=== PATIENT | female | born 1980 | race Caucasian/White ===

== ENCOUNTER 2025-02-05 10:53 | Emergency (ER) | payer BC, SELFPAY ==
[2025-02-05 11:19] VITALS: BP 126/78; PULSE 96; RESP 16; TEMP 37.4; O2SAT 99
--- NOTE | 2025-02-05 11:43 | ED.URI ---
HPI - URI/Sore Throat General Chief Complaint: Upper Respiratory Infection Stated Complaint: URI Symptoms Source: patient and RN notes reviewed Mode of arrival: ambulatory Limitations: no limitations History of Present Illness HPI Narrative: 44-year-old female presented for complaint headache, body aches, sinus pressure/congestion, cough, fever/chills. onset last night. She lost her voice this morning. Taking Sudafed and Mucinex. Denies sob, wheezing, n/v/d. MD elicited complaint: cough Review of Systems Review of Systems: per HPI Exam Narrative: GENERAL: mildly Ill-appearing, nontoxic no acute distress. EYES: conjunctivae clear ENT: Mucous membranes moist. TM pearly alaniz with dull light reflex bilaterally; no tragal tenderness. hoarse voice. Oropharynx erythematous without lesions or exudate, no drooling, no trismus, uvula midline. No tripod positioning, muffled voice, soft palate or pharyngeal wall bulging NECK: Supple. No lymphadenopathy CHEST: Clear to auscultation, breath sounds equal. No wheezing, rhonchi, rales, or stridor. No respiratory distress, speaks in full sentences. HEART: Regular rate and rhythm. SKIN: Warm, dry, no rash. NEURO: Alert and oriented x3. PSYCH: Normal mood and affect Course Course Level of Care: Express Care Visit Vital Signs Vital signs: Vital Signs Temperature 99.3 F 02/05/25 11:19 Pulse Rate 96 02/05/25 11:19 Respiratory Rate 16 02/05/25 11:19 Blood Pressure 126/78 02/05/25 11:19 Pulse Oximetry 99 02/05/25 11:19 Temperature 99.3 F 02/05/25 11:19 Pulse Rate 96 02/05/25 11:19 Respiratory Rate 16 02/05/25 11:19 Blood Pressure 126/78 02/05/25 11:19 Pulse Oximetry 99 02/05/25 11:19 MDM MDM Narrative Medical decision making narrative: POS flu. discussed risks and benefits of Tamiflu, patient is agreeable. Discussed physical exam findings. Advised supportive measures and signs/symptoms to go to the ER. Pt is appropriate for outpt treatment and f/u. Differential Diagnosis Differential Diagnosis: Influenza, covid, sinusitis, OM, strep pharyngitis, URI Discharge Plan Discharge Clinical Impression: Influenza Patient Disposition: Home Condition: Stable Instructions: Influenza (ED) Additional Instructions: Influenza positive You should avoid crowds until you are fever free for 24 hours without the use of fever reducing medications, or the symptoms are improved Rest. Drink plenty of fluids. Tylenol and Motrin every 8 hours as needed for pain/fever Recommend Flonase spray and Zyrtec (or Claritin/Daphne) for sinus pressure/congestion over the counter Cough syrup may cause drowsiness; avoid driving or take it at night time. *Tamiflu may cause nausea, vomiting, headache. Follow up with your primary care provider as needed in 1 week Go to the ER for worsening symptoms or concerns Patient Language: Greenlandic Prescriptions: New oseltamivir [Tamiflu] 75 mg capsule 75 mg PO Q12H 5 Days Qty: 10 0RF Follow-up/Referrals: UNKNOWN,DOCTOR [Primary Care Provider] Time of Disposition: 11:49
[2025-02-05 12:34] LABS: EDCOVIDSCREEN Negative (Negative); EDINFLUASCREEN Positive (Negative); EDINFLUBSCREEN Negative (Negative); EDSTREPNEGPOS1 Negative (Negative)
== END 2025-02-05 11:55 | disposition home or self-care (01) ==
PROVIDERS: Emergency Provider Nurse Practitioner Family
DX: J10.1 Influenza due to other identified influenza virus with other respiratory manifestations (principal); Z20.822 Contact with and (suspected) exposure to COVID-19
CPT/HCPCS: 87426; 87804; 87880; 99213; G0463